=== PATIENT | male | born 1985 | race Caucasian/White ===

== ENCOUNTER 2023-08-16 17:46 | Emergency (ER) | payer SELFPAY ==
--- NOTE | 2023-08-16 17:56 | ED.SKABFB ---
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 States he cut the foot (3rd MTP area) on a piece of galvanized metal in the garage, stating he was wearing flip-flops. 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 Unsure of last tetanus. Denies decreased ROM to the foot, denies numbness, tingling or weakness. Denies toe injury. Related Data Home Medications Medication Instructions Recorded Confirmed No Home Medications 08/16/23 08/16/23 Allergies Allergy/AdvReac Type Severity Reaction Status Date / Time bee venom protein (honey bee) Allergy Anaphylaxis Verified 08/16/23 18:07 [bees] Penicillins Allergy Unknown Verified 08/16/23 18:06 Review of Systems Review of Systems: CONSTITUTIONAL: Denies body aches, fever, chills, or sweats. CARDIOVASCULAR: Denies chest pain, palpitations, or edema. RESPIRATORY: Denies cough or dyspnea. SKIN: reports foot laceration MUSCULOSKELETAL: Denies back pain, joint pain, or myalgia. NEUROLOGIC: Denies headache, numbness, tingling, or weakness. [facility], LAT[facility] Surgical History Surgical History (Updated 08/16/23 @ 19:00 by Екатерина Warner APRN) H/O right knee surgery Status post labral repair of shoulder Comments At time of signature, I have reviewed and agree with nursing past medical, surgical, social and family history unless otherwise noted. Please see nursing chart for further information. There is no relevant family history pertinent to the presenting complaint Exam Narrative: GENERAL: Well-appearing HEAD: Normocephalic, atraumatic. ENT: Mucous membranes moist. Oropharynx without edema, erythema or lesions. CHEST: Clear to auscultation. HEART: Regular rate and rhythm. SKIN: Warm, dry. Right dorsal foot 3rd MTP joint with approximately 1 cm linear laceration, scant bleeding. Full range of motion to the toes. CMS intact. NEURO: Alert and oriented x3. Course Course Emergency Course: Patient is aware of diagnosis, understands and agrees to treatment plan. Anticipatory guidance given. Patient agrees to follow-up as directed and is aware of reasons to seek care at the emergency department. Portions of this record may have been created with voice recognition software Level of Care: Express Care Visit Vital Signs Vital signs: Vital Signs Temperature 98.1 F 08/16/23 18:00 Pulse Rate 76 08/16/23 18:00 Respiratory Rate 18 08/16/23 18:00 Blood Pressure 161/82 H 08/16/23 18:00 Pulse Oximetry 99 08/16/23 18:00 Oxygen Delivery Room Air 08/16/23 18:00 Temperature 98.1 F 08/16/23 18:00 Pulse Rate 76 08/16/23 18:00 Respiratory Rate 18 08/16/23 18:00 Blood Pressure 161/82 H 08/16/23 18:00 Pulse Oximetry 99 08/16/23 18:00 Oxygen Delivery Room Air 08/16/23 18:00 Reviewed Procedures Laceration right foot: Date: 08/16/23 Size (cm): 1 Description: linear and clean Depth: simple, single layer Local Anesthetic: lidocaine 1% Amount of anesthesia used (mL): 3 Pre-repair: wound explored and irrigated (sterile water 50mL) ====== Skin Level ====== Skin layer closed with: nylon Size (cm): 6-0 Number of sutures: 3 ====== Subcutaneous Layer ====== ====== Muscle Layer ====== ====== Tendon Layer ====== Dressing: The procedure and its alternatives were reviewed with patient. Risks were reviewed with patient including infection and damage to nearby structures. Patient provided verbal informed consent. The patient was positioned appropriately. Sterile drapes applied to maintain sterile field. Wound was explored for abnormalities including infection and foreign bodies. Sutures pl
[2023-08-16 18:00] VITALS: BP 161/82; PULSE 76; RESP 18; TEMP 36.7; O2SAT 99
[2023-08-16] MEDS: TETANUS,DIPHTHERIA,AC PERTUSSIS ADULT (0.5 ML) BOOSTRIX IM (18:14)
== END 2023-08-16 19:03 | disposition home or self-care (01) ==
PROVIDERS: Emergency Provider Nurse Practitioner Family
DX: S91.311A Laceration without foreign body, right foot, initial encounter (principal); W45.8XXA Other foreign body or object entering through skin, initial encounter; Z23 Encounter for immunization
CPT/HCPCS: 12001; 90471; 90715; 99212; G0463